=== PATIENT | male | born 1990 | race Caucasian/White ===

== ENCOUNTER 2018-04-22 18:19 | Emergency (ER) | payer BC ==
[2018-04-22] MEDS ORDERED: HYDROmorphONE/DILAUDID 2 MG/ML INJ IVP ONE (19:25)
[2018-04-22] MEDS ORDERED: ONDANSETRON 4 MG/2 ML VIAL IVP ONE (19:25)
[2018-04-22] MEDS ORDERED: FAMOTIDINE 20 MG/NACL 50 ML IV ONE (19:25)
[2018-04-22] MEDS ORDERED: NS 1,000 ML IV ONE ×2 (19:25→20:16)
[2018-04-22 19:38] LABS: PLATELET COUNT 225 10^3/uL (150-400)
[2018-04-22] MEDS ORDERED: IOPAMIDOL (ISOVUE-300) 100 ML BTL ONE (20:16)
--- NOTE | 2018-04-22 20:16 | EDPHY ---
H & P Time Seen by Provider: 04/22/18 19:24 HPI/ROS: HPI Abdominal pain, Crohn's flare-up. 27-year-old male with history of Crohn's disease as well as reactive arthritis. This patient has been dealing with a Crohn's flare up since March 22. He has been on a long course of steroids. He recently tapered and finished his steroids last . He reports worsening pain and nausea since last night. His last meal was last night at approximately 6:00 p.m.. He has not eaten anything today. He describes having mid and upper abdominal cramping and discomfort. Last bowel movement was earlier today. This was in mixture brown stool and diarrhea. He denies any bloody or melenic stool. He is concerned about a bowel obstruction and this is why he came to the emergency department. His money counter is Dr. Elkins at [facility]. ROS: Constitutional: No fever, no chills. No weakness. Eyes: No discharge. No changes in vision. ENT: No sore throat. No nasal congestion or rhinorrhea. Respiratory: No cough. No shortness of breath. Cardiac: No chest pain, no palpitations. Gastrointestinal: As above, no vomiting. Genitourinary: No hematuria. No dysuria or increased frequency with urination. Musculoskeletal: No back pain. No neck pain. No myalgias or arthralgias. Skin: No rashes. Neurological: No headache. No focal weakness or altered sensation. Past medical history: As above. Social history: Nonsmoker. He is here with his mother and girlfriend. No alcohol. Physical Exam: General Appearance: Alert, he appears uncomfortable. This patient is responding to questions appropriately and in full sentences. This patient appears well-hydrated and well-nourished. Eyes: Pupils equal and round no pallor or injection. No lid edema, erythema or injection. Respiratory: There are no retractions, lungs are clear to auscultation with good air movement bilaterally. Cardiovascular: Regular rate and rhythm. No murmur. Gastrointestinal: Abdomen is soft with vague tenderness on palpation throughout the mid and upper abdomen, no masses, bowel sounds normal. No focal tenderness at McBurney's point. No De Oliveira sign. Neurological: Motor sensory function is grossly intact. Cranial nerves are normal. Gait is normal. Skin: Warm and dry, no rashes. Musculoskeletal: Neck is supple and nontender. Extremities are symmetrical. All joints range without pain or impingement. Psychiatric: No agitation. No depression. Database: EKG: Imaging: CT abdomen and pelvis with IV contrast: Procedures: Emergency department course: Triage vital signs reviewed. He is borderline tachycardic. Vital signs are otherwise normal. He is afebrile. IV was placed. He was placed on a auto glass technician. He was started on IV normal saline with 1-2 L to be given over the next 1-2 hours. He was initially given 4 mg of IV Zofran, 20 mg of IV Pepcid and 0.5 mg of IV hydromorphone. He does not want to be given steroids. I discussed this thoroughly with him. He will be sent for CT imaging to evaluate for possible bowel obstruction. 8:15 p.m., patient re-evaluated, resting comfortably at this time. He states that he is feeling better. He declines additional pain medication. CT abdomen and pelvis pending. Results of blood work discussed with him and family. 10:20 p.m., patient re-evaluated, resting comfortably at this time. I discussed the results of his CT abdomen and pelvis. I explained that there was marked inflammation involving his colon as well as ileum. I advised admission. He does not want to be admitted. He understands the seriousness of his diagnosis in my professional opinion. He declines admission regardless. He will follow up with his money counter within the next 1-2 days. He spoke with his mother about being admitted. She wanted him to be admitted as well but he declines this. The patient competently engages in shared decision making. They demonstrate capacitance to make decisions. I do not feel he requires an antibiotic at this time. I will prescribe him a short course of extended-release morphine for pain control. He will receive 1 dose, 15 mg, to go home with. He will follow up with his money counter as above. Return to emergency department precautions were thoroughly reviewed with him. All of his questions were answered. He was discharged from the emergency department in good condition. Differential Diagnosis: The differential diagnosis on this patient includes but is not limited to Crohn' s flare. Appendicitis, cholecystitis, pancreatitis, perforated peptic ulcer, bowel obstruction unlikely. This represents a partial list of diagnoses considered. These considerations are based on history, physical exam, past history, reassessment and diagnostic testing. Smoking Status: Never smoked Constitutional: Initial Vital Signs Temperature (C) 36.9 C 04/22/18 18:28 Heart Rate 100 04/22/18 18:28 Respiratory Rate 17 04/22/18 18:28 Blood Pressure 123/88 H 18 18:28 O2 Sat (%) 97 18 18:28 O2 Delivery Mode Room Air Allergies/Adverse Reactions: No Known Allergies Allergy (Unverified 04/22/18 18:28) Medical Decision Making - Diagnostics Imaging Results: Imaging Impressions Abdomen CT 04/22/18 20:12 Impression: 1. Crohn's ileitis and ascending colitis, with thickening and inflammatory changes of the terminal ileum and ascending colon, pericolonic right paracolic gutter fluid, and fluid in the pelvis. 2. No definite drainable abscess although limited due to lack of oral contrast. Findings and recommendations discussed with Emergency Department physician, Tonny Pride M.D., at 2125 hours, on April 22, 2018. Final report concurs with initial preliminary interpretation. - Data Points Laboratory Results: Laboratory Results 04/22/18 19:26 04/22/18 19:26 04/22/18 04/22/18 19:26 19:26 WBC 9.11 10^3/uL 10^3/uL (3.80-9.50) RBC 5.67 10^6/uL 10^6/uL (4.40-6.38) Hgb 16.3 g/dL g/dL (13.7-17.5) Hct 49.1 % % (40.0-51.0) MCV 86.6 fL fL (81.5-99.8) MCH 28.7 pg pg (27.9-34.1) MCHC 33.2 g/dL g/dL (32.4-36.7) RDW 14.4 % % (11.5-15.2) Plt Count 225 10^3/uL 10^3/uL (150-400) MPV 9.2 fL fL (8.7-11.7) Neut % (Auto) 76.0 % H % (39.3-74.2) Lymph % (Auto) 12.2 % L % (15.0-45.0) Hopkins % (Auto) 10.0 % % (4.5-13.0) Eos % (Auto) 1.0 % % (0.6-7.6) Baso % (Auto) 0.4 % % (0.3-1.7) Nucleat RBC Rel Count 0.0 % % (0.0-0.2) Absolute Neuts (auto) 6.92 10^3/uL H 10^3/uL (1.70-6.50) Absolute Lymphs (auto) 1.11 10^3/uL 10^3/uL (1.00-3.00) Absolute Monos (auto) 0.91 10^3/uL H 10^3/uL (0.30-0.80) Absolute Eos (auto) 0.09 10^3/uL 10^3/uL (0.03-0.40) Absolute Basos (auto) 0.04 10^3/uL 10^3/uL (0.02-0.10) Absolute Nucleated RBC 0.00 10^3/uL 10^3/uL (0-0.01) Immature Gran % 0.4 % % (0.0-1.1) Immature Gran # 0.04 10^3/uL 10^3/uL (0.00-0.10) Sodium 137 mEq/L mEq/L (135-145) Potassium 4.1 mEq/L mEq/L (3.3-5.0) Chloride 96 mEq/L L mEq/L (97-110) Carbon Dioxide 27 mEq/l mEq/l (22-31) Anion Gap 14 mEq/L mEq/L (8-16) BUN 12 mg/dL mg/dL (7-23) Creatinine 1.0 mg/dL mg/dL (0.7-1.3) Estimated GFR > 60 Glucose 93 mg/dL mg/dL (70-100) Calcium 9.5 mg/dL mg/dL (8.5-10.4) Total Bilirubin 0.6 mg/dL mg/dL (0.1-1.4) Conjugated Bilirubin 0.1 mg/dL mg/dL (0.0-0.5) Unconjugated Bilirubin 0.5 mg/dL mg/dL (0.0-1.1) AST 20 IU/L IU/L (17-59) ALT 25 IU/L IU/L (21-72) Alkaline Phosphatase 97 IU/L IU/L (38-126) Total Protein 8.0 g/dL g/dL (6.3-8.2) Albumin 4.3 g/dL g/dL (3.5-5.0) Lipase 34 IU/L IU/L (23-300) Medications Given: Discontinued Medications Hydromorphone HCl (Dilaudid) 0.5 mg IVP EDNOW ONE Stop: 04/22/18 19:26 Last Admin: 04/22/18 20:00 Dose: 0.5 mg Sodium Chloride (Ns) 1,000 mls @ 0 mls/hr IV EDNOW ONE; Wide Open PRN Reason: Protocol Stop: 04/22/18 19:26 Last Admin: 04/22/18 19:59 Dose: 1,000 mls Famotidine/Sodium Chloride (Pepcid 20 Mg (Premix)) 50 mls @ 200 mls/hr IV EDNOW ONE Stop: 04/22/18 19:39 Last Admin: 04/22/18 20:00 Dose: 50 mls Sodium Chloride (Ns) 1,000 mls @ 0 mls/hr IV EDNOW ONE; Wide Open PRN Reason: Protocol Stop: 04/22/18 20:17 Last Admin: 04/22/18 22:08 Dose: 1,000 mls Ondansetron HCl (Zofran) 4 mg IVP EDNOW ONE Stop: 04/22/18 19:26 Last Admin: 04/22/18 20:00 Dose: 4 mg Departure - Departure Disposition: Home, Routine, Self-Care Clinical Impression: Crohn's colitis, Abdominal pain Condition: Good Instructions: Crohn Disease (ED), Colitis (ED) Additional Instructions: Read and follow provided instructions. Follow-up with your money counter in 1-2 days for re-evaluation. Take medication as prescribed for pain and nausea. Do not drive on this medication. Return to the emergency department for worsening symptoms, worsening abdominal pain, vomiting and inability to keep fluids down despite medications, fever, blood in your stool or other serious concerns. Referrals: Roe Elkins MD [Medical Doctor] - As per Instructions
[2018-04-22] MEDS ORDERED: morphINE SR 15 MG TAB PO ONE (23:02)
[2018-04-22 23:33] VITALS: BP 103/71
== END 2018-04-22 23:33 | disposition home or self-care (01) ==
DX: K50.00 Crohn's disease of small intestine without complications (principal); R10.9 Unspecified abdominal pain
CPT/HCPCS: 96374; J1170; J2405; Q9967